=== PATIENT | female | born 1980 | race Caucasian/White ===

== ENCOUNTER 2024-10-22 21:30 | Emergency (ER) | payer OTHER, SELFPAY ==
[2024-10-22 21:33] VITALS: BP 158/100
[2024-10-22 21:52] LABS: % Basophils 0.6 % (0-2); % Eosinophils 2.3 % (0-6); % Immature Granulocytes 0.6 % (0-0.5); % Lymphocytes 26.4 % (20.5-51.1); % Monocytes 7.3 % (1.7-9.3); % Neutrophils 62.8 % (42.2-75.2); Absolute Basophils 0.1 10^3/uL (0-0.2); Absolute Eosinophils 0.2 10^3/uL (0-0.7); Absolute Immature Granulocytes 0.1 10^3/uL (0-0.05); Absolute Lymphocytes 2.5 10^3/uL (1.2-3.4); Absolute Monocytes 0.7 10^3/uL (0.1-0.6); Hematocrit 35.6 % (37.0-47.0); Hemoglobin 11.9 g/dL (12.0-16.0); Mean Corp Hgb Conc. 33.4 g/dL (33.0-37.0); Mean Corpuscular Hgb 27.3 pg (27.0-31.0); Mean Corpuscular Volume 81.7 fL (81.0-99.0); Mean Platelet Volume 9.2 fL (7.4-10.4); Nucleated Red Blood Cells % 0 %; Platelet Count 224 10^3/uL (130-400); Red Blood Cell Count 4.36 10^6/uL (4.20-5.40); Red Cell Dist. Width 14.7 % (11.5-14.5); White Blood Cell Count 9.6 10^3/uL (4.8-10.8)
[2024-10-22 22:07] LABS: ALT (SGPT) 28 U/L (0-35); AST (SGOT) 23 U/L (14-36); Albumin 4.6 g/dl (3.5-5.0); Alkaline Phosphatase 62 U/L (38-126); Blood Urea Nitrogen 20 mg/dl (7-17); Calcium 9.1 mg/dl (8.4-10.2); Carbon Dioxide 25 mmol/L (22-30); Glucose 105 mg/dl (70-99); Total Bilirubin 0.5 mg/dl (0.2-1.3); eGFR > 60.00
[2024-10-22 22:13] LABS: Urine Albumin Negative (Neg - Trace); Urine Bilirubin Negative (Negative); Urine Character Clear (Clear); Urine Color Yellow; Urine Glucose Negative (Negative); Urine Ketone Negative (Negative); Urine Leukocyte Negative (Negative); Urine Nitrite Negative (Negative); Urine Occult Blood 4+ (Negative); Urine Urobilinogen Negative (Neg - 1+)
[2024-10-22 22:24] LABS: Chloride 100 mmol/L (98-107); Potassium 4.6 mmol/L (3.5-5.1); Sodium 134 mmol/L (135-145)
--- NOTE | 2024-10-22 22:26 | ED.GENMED ---
History of Present Illness
<ELISABETH Calvo - Last Filed: 10/23/24 02:33>
General
Chief Complaint: Flank Pain
Source: patient
Exam Limitations: none
Time Seen by Provider: 10/22/24 21:56
History of Present Illness
History of Present Illness:
This is a 44 year old female that comes in with c/o left flank pain. States that this started at 6pm tonight out of the blue. States that it starts in the back and comes around to the abd. States that she is nauseated. Denies any fever, chills,
chest pain, SOB, vomiting, diarrhea, headache, dizziness, urinary burning
Past History
<ELISABETH Calvo - Last Filed: 10/23/24 02:33>
Past History
ED Past Medical History: Other (Renal calculus); Negative Asthma, HTN, Hypercholesterolemia or NIDDM
ED Past Surgical History: Cholecystectomy, (X 4) and Gynecological (Hysteroscopy)
Social History
Tobacco: Non-smoker
Alcohol: None
Drug: None
Personal:
Living: with family
Review of Systems
<ELISABETH Calvo - Last Filed: 10/23/24 02:33>
Review of Systems
All Other Systems: ROS reviewed and negative except as documented in HPI and ROS
Constitutional: Reports no symptoms; Denies fever or chills
EENT: Reports no symptoms
Respiratory: Reports no symptoms; Denies cough or trouble breathing
Cardiac: Reports no symptoms; Denies chest pain
ABD/GI: Reports abdominal pain and nausea; Denies vomiting or diarrhea
: Reports flank pain (Left sided); Denies dysuria, frequency or urgency
Musculoskeletal: Reports no symptoms
Skin: Reports no symptoms
Neurological: Reports no symptoms; Denies dizzy or headache
Psychiatric: Reports no symptoms
Phy Exam
<ELISABETH Calvo - Last Filed: 10/23/24 02:33>
General Physical Exam
General Presentation: mild distress
General age: appears stated age
General Skin: warm and dry
General Habitus: normal
General Mental: alert
General Hydration: appears well hydrated
ENT Exam
ENT Exam: TM's normal, pharynx normal and neck supple
Eye Exam
Eye Exam: EOMI
Cardiovascular Exam
Cardiovascular Exam: regular rate/rhythm, no edema, no murmur and normal peripheral pulses
Pulmonary Exam
Pulmonary Exam: lungs clear, no respiratory distress, no rales, chest non tender, no crackles, no rhonchi, no wheezing and no cough
Gastrointestinal Exam
Gastrointestinal Exam: normal bowel sounds, soft, no organomegaly, no pulsatile mass, non distended, cva tenderness (Left sided) and tender (Left sided slight abd tenderness with palpation)
Musculoskeletal Exam
Musculoskeletal Exam: full ROM and no edema
Skin Exam
Skin Exam: normal color, warm/dry, no rash and no petechia
Psychiatric Exam
Psychiatric Exam: normal mood/affect
Course
<ELISABETH Calvo - Last Filed: 10/23/24 02:33>
Orders/Labs/Results
Orders:
Orders
10/22/24 21:41
Complete Blood Count/With Diff Urgent
Comprehensive Metabolic Panel Urgent
HCG, Serum Qualitative Screen Urgent
Comment: ADD ON
Urinalysis Reflex To Culture Urgent
Date Specimen was Collected: 10/22/24
Time Specimen was Collected: 21:37
Urine Microscopic Reflex Cult Urgent
10/22/24 22:25
CT Abd/pel Without Iv Or Oral Urgent
Comment:
Reason For Exam: Left flank pain
0.9% Sodium Chloride 1000 ml [Nss] 1,000 ml IV BOLUS
Ketorolac [Toradol] 30 mg IV NOW STA
Ondansetron Injectable [Zofran] 4 mg IV NOW STA
10/22/24 22:28
Add On- LAB Urgent
Tests Added?: HCG
10/22/24 23:32
Tamsulosin [Flomax] 0.4 mg PO NOW STA
10/22/24 23:34
HYDROmorphone [Dilaudid] 1 mg IV NOW STA
Abnormal Lab Results
10/22/24
21:41
Hgb 11.9 L g/dL
(12.0-16.0)
Hct 35.6 L %
(37.0-47.0)
RDW 14.7 H %
(11.5-14.5)
Abs Immat Gran (auto) 0.1 H 10^3/uL
(0-0.05)
Absolute Monos (auto) 0.7 H 10^3/uL
(0.1-0.6)
Immature Gran % 0.6 H %
(0-0.5)
Sodium 134 L mmol/L
(135-145)
BUN 20 H mg/dl
(7-17)
Glucose 105 H mg/dl
(70-99)
Ur Occult Blood Reflex 4+ A
(Negative)
Urine RBC 7-10 A /HPF
(0-2)
Urine Bacteria (Reflex) Few A
(Negative)
10/22/24 21:41
10/22/24 21:41
H/H slighty low, Dehydration. Glucose nonfasting. Urine negative for infection. HCG negative.
Vital Signs
Initial and Last Documented VS:
Initial Vital Signs
Temp Pulse Resp BP Pulse Ox
97.3 F 82 17 158/100 100
10/22/24 21:33 10/22/24 21:33 10/22/24 21:33 10/22/24 21:33 10/22/24 21:33
Last Documented Vital Signs
Temp Pulse Resp BP Pulse Ox
97.3 F 82 17 141/85 98
10/22/24 21:33 10/22/24 21:33 10/22/24 21:33 10/22/24 23:48 10/22/24 23:48
<Bautista Silverman MD - Last Filed: 10/22/24 22:37>
Orders/Labs/Results
Orders:
Orders
10/22/24 21:41
Complete Blood Count/With Diff Urgent
Comprehensive Metabolic Panel Urgent
HCG, Serum Qualitative Screen Urgent
Comment: ADD ON
Urinalysis Reflex To Culture Urgent
Date Specimen was Collected: 10/22/24
Time Specimen was Collected: 21:37
Urine Microscopic Reflex Cult Urgent
10/22/24 22:25
CT Abd/pel Without Iv Or Oral Urgent
Comment:
Reason For Exam: Left flank pain
0.9% Sodium Chloride 1000 ml [Nss] 1,000 ml IV BOLUS
Ketorolac [Toradol] 30 mg IV NOW STA
Ondansetron Injectable [Zofran] 4 mg IV NOW STA
10/22/24 22:28
Add On- LAB Urgent
Tests Added?: HCG
10/22/24 23:32
Tamsulosin [Flomax] 0.4 mg PO NOW STA
10/22/24 23:34
HYDROmorphone [Dilaudid] 1 mg IV NOW STA
Abnormal Lab Results
10/22/24
21:41
Hgb 11.9 L g/dL
(12.0-16.0)
Hct 35.6 L %
(37.0-47.0)
RDW 14.7 H %
(11.5-14.5)
Abs Immat Gran (auto) 0.1 H 10^3/uL
(0-0.05)
Absolute Monos (auto) 0.7 H 10^3/uL
(0.1-0.6)
Immature Gran % 0.6 H %
(0-0.5)
Sodium 134 L mmol/L
(135-145)
BUN 20 H mg/dl
(7-17)
Glucose 105 H mg/dl
(70-99)
Ur Occult Blood Reflex 4+ A
(Negative)
Urine RBC 7-10 A /HPF
(0-2)
Urine Bacteria (Reflex) Few A
(Negative)
10/22/24 21:41
10/22/24 21:41
Vital Signs
Initial and Last Documented VS:
Initial Vital Signs
Temp Pulse Resp BP Pulse Ox
97.3 F 82 17 158/100 100
10/22/24 21:33 10/22/24 21:33 10/22/24 21:33 10/22/24 21:33 10/22/24 21:33
Last Documented Vital Signs
Temp Pulse Resp BP Pulse Ox
97.3 F 82 17 141/85 98
10/22/24 21:33 10/22/24 21:33 10/22/24 21:33 10/22/24 23:48 10/22/24 23:48
<ELISABETH Calvo - Last Filed: 10/23/24 02:33>
MDM/Problems Addressed
Differential Diagnosis Includes:
Renal calculus,
MDM/Problems Addressed:
This is a 44 year old female that comes in with c/o left flank pain. States that this started at 6pm tonight.
Will check labs, Urine and get CT scan. Will give IV fluids and pain medication.
Back into see patient. Explained that her CT shows a 5mm stone in the proximal left ureter. Will start patient on Flomax. WIll send prescription for Zofran and Oxycodone for pain. Patient can then alternate with Tylenol and Ibuprofen for lesser
pain. Patient to increase her water intake to 8-8oz glasses daily. Patient to return with increased pain, fever, or any other concerns.
Message sent to DR. Eddy and patient is to call the office tomorrow.
Chronic conditions affecting care:
Renal calculus
Acute Exacerbation and/or Progression of Chronic Illness:
Renal calculus
<ELISABETH Calvo - Last Filed: 10/23/24 02:33>
*Radiology
Radiology exam reviewed: radiology read reviewed (CT night hawk- 5mm stone within the proximal left ureter resulting in mild left hydronephrosis. No bowel obstruction. Status post cholecystectomy. NOrmal appendix. Incidentals: Moderate stool burden.
No hepatic or pancreatic mass. NO abdominal aortic aneurysm. No acute osseous abnormality. NO acute ) and other (CT cont- abnormality within the visualized lungs. NO acute abnormality within the visualized soft tissues. )
*Pulse Oximetry
Patient hypoxic: no
*EKG
Interpreted by ED Provider?: NA
Rate: EKG- N/A
*At Risk Specialist Interpretation
Rate: At Risk Specialist- N/A
*Critical Care Note
Total Time (30-74mins, 75-104mins- exclusive of procedures): Not Applicable
ED Attending Note
<ELISABETH Calvo - Last Filed: 10/23/24 02:33>
-
Portions of this chart may have been created with voice recognition software.� Occasional wrong word or��sound alike� substitutions may have occurred due to the inherent limitations of voice recognition software.
<Batuista Silverman MD - Last Filed: 10/22/24 22:37>
ED Attending Note
Patient seen and examined by attending physician: Yes
ED Attending Note:
I have seen and evaluated the patient with a [id number] encounter. I have spoken to the advance practicer provider and involved in the medical history, the physical exam, medical decision making.
Evaluation and management service: agree unless noted differently below.
Results interpretation: agree unless noted differently below.
Focused HPI: 44-year-old female with history as documented notable for prior kidney stones presents to the emergency room for evaluation of left flank pain. Patient reports symptoms started a few hours ago and have been constant although intensity
waxes and wanes. Associated with nausea and vomiting. No fever, no chills. Denies any dysuria, hematuria, change in frequency. She reports similar symptoms to prior kidney stones, last kidney stone was in 2018. She says previously followed with
urology [facility] but mother follows with Dr. Urbina and patient wishes to establish care with him.
Physical exam: Awake alert no distress. Hypertensive otherwise normal vitals. No abdominal tenderness or masses. No CVA tenderness.
Medical Decision Makin-year-old female presents with flank pain similar to prior kidney stones. Vitals and exam as above. No infectious signs or symptoms. Check labs, urine, CT. Treat pain, nausea, give fluids.
Discharge Plan
Departure
Patient Disposition: Home (Routine Discharge)
Date of Disposition: 10/22/24
Time of Disposition: 23:48
Patient with high blood pressure during this ER visit?: Yes
Condition: Good
Covid-19: Not Applicable
Discharge Problem:
Renal calculus, left
Instructions: Renal Colic (DC), How to Strain Your Urine, Narcotic Pain Medication
Prescriptions:
New
tamsulosin [Flomax] 0.4 mg capsule
0.4 mg PO HS Qty: 7 0RF
oxycodone 10 mg tablet
10 mg PO Q8H PRN (Reason: Pain) Qty: 7 0RF
ondansetron 4 mg tablet,disintegrating
4 mg PO Q8H PRN (Reason: nausea and vomiting) Qty: 7 0RF
No Action
vit no.[id number] [ Vitamin] 1 EACH tablet
1 ea PO DAILY
acetaminophen 325 MG tablet
650 mg PO Q4HPRN PRN (Reason: mild pain) 0RF
ibuprofen 600 MG tablet
600 mg PO Q4HPRN PRN (Reason: cramps) 0RF
Referrals:
Quirino Urbina MD [Active] - Follow up in 2-3 days
UNKNOWN - PT DOES,NOT KNOW [Unknown Provider] -
Activity Restrictions/Additional Instructions:
As discussed, you have a 5mm stone in the proximal left ureter. Please increase your water intake to 8-8oz glasses daily. You have had three prescriptions sent to the Pharmacy. The first is for Flomax which will relax the smooth muscle so you can
pass the stone. The second is for Zofran to help with any nausea/vomiting. The last is a narcotic pain medication to help with severe pain. Please try and take this with food as it can upset your stomach. You may use Tylenol or Ibuprofen for lesser
pain and alternate them. PLEASE CALL THE UROLOGIST OFFICE TOMORROW AND ASK FOR DR. URBINA. IF YOU HAVE INCREASED OR CHANGING PAIN, PAIN THAT IS NOT CONTROLLED, VOMITING THAT HIS NOT CONTROLLED, FEVER, OR YOU HAVE ANY OTHER CONCERNS PLEASE RETURN TO
THE EMERGENCY ROOM.
Interventions
Interventions:
*Risk Screen - Suicide Last Done: 10/22/24 21:36
*General Assessment Last Done: 10/22/24 21:36
*Neglect/Abuse Screening Last Done: 10/22/24 21:36
ED- Fall Risk Assessment Last Done: 10/23/24 00:54
*ED COVID-19 Vaccine History Last Done: 10/22/24 21:36
*Nursing Disposition Last Done: 10/23/24 00:54
VK-Tydhze-Xjtuwnkbek Assessment Last Done: 10/22/24 23:50
ED-Female Genitourinary Assessment Last Done: 10/22/24 23:50
Discharge Date and Time
Discharge Date/Time: 10/23/24 00:50
Print Language: GEORGIAN
[2024-10-22] MEDS: TORADOL 30 MG IV (22:29)
[2024-10-22] MEDS: ZOFRAN 4 MG IV (22:30)
[2024-10-22] MEDS: NSS 1000 IV (22:30)
[2024-10-22 22:31] LABS: Urine Bacteria Few (Negative); Urine White Cell 0-2 /HPF (0-5)
[2024-10-22 22:33] VITALS: BP 171/80
[2024-10-22 22:47] LABS: HCG, Serum Qualitative Screen Negative
[2024-10-22 23:48] VITALS: BP 141/85
[2024-10-22] MEDS: FLOMAX 0.4 MG PO (23:53)
[2024-10-22] MEDS: DILAUDID 1 MG IV (23:53)
== END 2024-10-23 00:50 | disposition home or self-care (01) ==
LOC: EMR 21:30
PROVIDERS: Student in an Organized Health Care Education/Training Program; EMERGENCY PHYSICIAN Emergency Medicine
DX: N13.2 Hydronephrosis with renal and ureteral calculous obstruction (principal); R03.0 Elevated blood-pressure reading, without diagnosis of hypertension
CPT/HCPCS: 99284; 96374; 96375 ×2; 96361; 74176; 80053; 81003; 81015; 84703; 85025

== ENCOUNTER 2024-10-29 06:28 | Day surgery (SDC) | payer OTHER, SELFPAY ==
[2024-10-29 14:38] VITALS: BMI 26.7
[2024-10-29 14:39] VITALS: BP 142/85
[2024-10-29] MEDS: NORMOSOL-R/PLASMALYTE-A 1000 IV (14:53)
[2024-10-29 19:20] VITALS: BP 112/73; BP 142/85
[2024-10-29 19:30] VITALS: BP 114/69
[2024-10-29] MEDS: DETROL LA 4 MG PO (19:36)
[2024-10-29] MEDS: Pyridium 200 MG PO (19:36)
[2024-10-29 19:45] VITALS: BP 128/85
[2024-10-29 20:03] VITALS: BP 136/83
== END 2024-10-29 20:15 | disposition home or self-care (01) ==
LOC: SDS 06:28
PROVIDERS: ATTENDING PHYSICIAN Surgery
DX: N20.2 Calculus of kidney with calculus of ureter (principal)
CPT/HCPCS: 52353; 52320; 74018; 82365; A4300; C1758; C1769; C1894; J1580